=== PATIENT | male | born 1985 | race African-American/Black ===

== ENCOUNTER 2016-12-10 11:51 | Inpatient (IN) | payer OTHER ==
[2016-12-10 13:34] VITALS: BMI 21.1
--- NOTE | 2016-12-10 16:52 | HP ---
CIWA Score - CIWA Score Nausea/Vomitin (DIARRHEA) Muscle Tremors: 3 Anxiety: 4-Mod. Anxious/Guarded Agitation: 3 Paroxysmal Sweats: 1-Minimal Palms Moist Orientation: 0-Oriented Tacttile Disturbances: 0-None Auditory Disturbances: 0-None Visual Disturbances: 0-None Headache: 0-None Present CIWA-Ar Total Score: 16 Admission ROS BHS - HPI Chief Complaint: DETOX TX FOR ALCOHOL DEPENDENCE. PT STATES "I NEED HELP TO STOP DRINKING". Allergies/Adverse Reactions: Allergies Allergy/AdvReac Type Severity Reaction Status Date / Time No Known Allergies Allergy Verified 12/10/16 16:05 History of Present Illness: 31 Y/O AA/MALE WITH A HX OF ALCOHOL,CRACK AND CRYSTAL METHAMPHETAMINE SEEKING DETOX TX . STATES ABOUT ONE YEAR SOBRIETY SINCE LAST DETOX HERE IN 2014. Exam Limitations: No Limitations - Ebola screening Have you traveled outside of the country in the last 21 days: No Have you had contact with anyone from an Ebola affected area: No Have you been sick,other than usual withdrawal symptoms: No Do you have a fever: No - Review of Systems Constitutional: Night Sweats, Changes in sleep, Unintentional Wgt. Loss EENT: reports: No Symptoms Reported Respiratory: reports: Shortness of Breath (HX ASTHMA), Wheezing Cardiac: reports: Lightheadedness GI: reports: Diarrhea, Nausea, Poor Fluid Intake, Vomiting : reports: Frequency Musculoskeletal: reports: Joint Pain, Muscle Pain Integumentary: reports: No Symptoms Reported Neuro: reports: Headache, Unsteady Gait, Dizziness Endocrine: reports: No Symptoms Reported Hematology: reports: No Symptoms Reported Psychiatric: reports: Orientated x3, Anxious, Depressed Other Systems: Reviewed and Negative Patient History - Patient Medical History Hx Anemia: No Hx Asthma: Yes (Pt is on MDI) Hx Chronic Obstructive Pulmonary Disease (COPD): No Hx Cancer: No Hx Cardiac Disorders: No Hx Congestive Heart Failure: No Hx Hypertension: No Hx Hypercholesterolemia: No Hx Pacemaker: No HX Cerebrovascular Accident: No Hx Seizures: No Hx Dementia: No Hx Diabetes: No Hx Gastrointestinal Disorders: No Hx Liver Disease: No Hx Genitourinary Disorders: No Hx Sexually Transmitted Disorders: No Hx Renal Disease (ESRD): No Hx Thyroid Disease: No Hx Human Immunodeficiency Virus (HIV): Yes (SINCE 2005;ON STRIBILD) Hx Hepatitis C: No Hx Depression: Yes Hx Suicide Attempt: No (HX CUTTING SELF; DENIES CURRENT IDEATIONS.) Hx Bipolar Disorder: No Hx Schizophrenia: No - Patient Surgical History Past Surgical History: Yes Hx Neurologic Surgery: No Hx Cataract Extraction: No Hx Cardiac Surgery: No Hx Lung Surgery: No Hx Breast Surgery: No Hx Breast Biopsy: No Hx Abdominal Surgery: No Hx Appendectomy: No Hx Cholecystectomy: No Hx Genitourinary Surgery: No Hx Orthopedic Surgery: No Other Surgical History: surgery for fx of mandible in 2010 Anesthesia Reaction: No - PPD History Previous Implant?: Yes Documented Results: Negative w/o proof Implanted On Prior [facility] Admission?: No Date: 10/24/14 Results: 0 mm PPD to be Administered?: Yes - Reproductive History Patient is a Female of Child Bearing Age (11 -55 yrs old): No (MALE) - Smoking Cessation Smoking history: Current every day smoker Have you smoked in the past 12 months: Yes Aproximately how many cigarettes per day: 10 Cigars Per Day: 0 Hx Chewing Tobacco Use: No Initiated information on smoking cessation: Yes 'Breaking Loose' booklet given: 12/10/16 - Substance & Tx. History Hx Alcohol Use: Yes (VODKA/BEER) Hx Substance Use: Yes (CRACK/METHAMPHETAMINE) Substance Use Type: Alcohol, Cocaine Hx Substance Use Treatment: Yes ([facility]AB) - Substances Abused Alcohol Route: Oral Frequency: Daily Amount used: 1 AND 1/2 PINTS VODKA Age of first use: 16 Date of Last Use: 12/10/16 Crack Route: Smoking Frequency: 3-6 times per week Amount used: $100 Age of first use: 22 Date of Last Use: 12/08/16 CRYSTAL METH Route: Smoking Frequency: 1-3 times last 30 days Amount used: $60 Age of first use: 25 Date of Last Use: 11/26/16 Family Disease History - Family Disease History Family Disease History: Other: Mother ( DUE TO MVA.) Admission Physical Exam BHS - Vital Signs Vital Signs: Vital Signs - 24 hr 12/10/16 13:32 Temperature 96 F L Pulse Rate 69 Respiratory 20 Rate Blood Pressure 127/80 - Physical General Appearance: Yes: Mild Distress, Thin, Anxious HEENTM: Yes: EOMI, Normocephalic, EMMY, Pharynx Normal Respiratory: Yes: Chest Non-Tender, Lungs Clear, Normal Breath Sounds, No Respiratory Distress Neck: Yes: Supple, Trachea in good position Breast: Yes: Breast Exam Deferred Cardiology: Yes: Regular Rhythm, Regular Rate, S1, S2 Abdominal: Yes: Normal Bowel Sounds, Non Tender, Soft Genitourinary: Yes: Other (N/C) Back: Yes: Within Normal Limits Musculoskeletal: Yes: full range of Motion, Gait Steady Extremities: Yes: Normal Range of Motion, Non-Tender Neurological: Yes: heel scorer II-XII NML intact, Fully Oriented, Alert Integumentary: Yes: Dry, Warm Lymphatic: Yes: Within Normal Limits - Diagnostic (1) Asthma Current Visit: Yes Status: Chronic Qualifiers: Asthma severity: mild intermittent Asthma complication type: uncomplicated Qualified Code(s): J45.20 - Mild intermittent asthma, uncomplicated (2) Human immunodeficiency virus infection Current Visit: Yes Status: Chronic (3) Alcohol dependence with uncomplicated withdrawal Current Visit: Yes Status: Acute Cleared for Admission [facility] - Detox or Rehab [facility] Level of Care: Medically Managed Detox Regimen/Protocol: Librium [facility] Breath Alcohol Content Breath Alcohol Content: 0 Urine Drug Screen - Results Drug Screen Negative: Yes
[2016-12-10] MEDS ORDERED: MAGNESIUM HYDROX 2400MG/30ML ORAL SUSPENSION 30 ML CUP PO PRN (17:06)
[2016-12-10] MEDS ORDERED: IBUPROFEN 400 MG TABLET (FP) PO PRN (17:06)
[2016-12-10] MEDS ORDERED: MAGNESIUM CITRATE 300 ML BOTTLE PO PRN (17:06)
[2016-12-10] MEDS ORDERED: guaiFENesin/D-METHORPHAN HB 10 ML UNIT-DOSE CUPS PO PRN (17:06)
[2016-12-10] MEDS ORDERED: chlordiazePOXIDE HCL 25 MG CAPSULE PO PRN (17:06)
[2016-12-10] MEDS ORDERED: P-EPHED 60MG/TRIPROLIDI 2.5MG TABLET PO PRN (17:06)
[2016-12-10] MEDS ORDERED: NICOTINE POLACRILEX 2 MG GUM BC PRN (17:06)
[2016-12-10] MEDS ORDERED: MAG HYDROX/AL HYDROX/SIMETH 30 ML UNIT-DOSE CUP PO PRN (17:06)
[2016-12-10] MEDS ORDERED: hydrOXYzine PAMOATE 25 MG CAPSULE (FP) PO PRN (17:06)
[2016-12-10] MEDS ORDERED: MENTHOL/PHENOL 1 EACH UD MM PRN (17:06)
[2016-12-10] MEDS ORDERED: ALBUTEROL SO4 6.7 GM HFA INHALER IH PRN (17:12)
[2016-12-10] MEDS ORDERED: chlordiazePOXIDE HCL 25 MG CAPSULE PO ONE (18:45)
[2016-12-10] MEDS: chlordiazePOXIDE HCL 25 MG CAPSULE PO SCH ×2 (19:05→22:22)
[2016-12-10] MEDS: ACETAMINOPHEN 325 MG TABLET (FP) PO PRN (19:07)
[2016-12-10] MEDS: NICOTINE 14 MG/24 HOURS TOPICAL PATCH TD SCH (19:09)
[2016-12-10] MEDS: THIAMINE HCL 100 MG TABLET (FP) PO SCH (22:22)
[2016-12-11] MEDS: chlordiazePOXIDE HCL 25 MG CAPSULE PO SCH ×3 (05:29→17:22)
[2016-12-11] MEDS: ACETAMINOPHEN 325 MG TABLET (FP) PO PRN ×2 (05:31→19:55)
[2016-12-11 09:59] LABS: URINE APPEARANCE CLOUDY; URINE BILIRUBIN NEGATIVE (NEGATIVE); URINE BLOOD NEGATIVE (NEGATIVE); URINE COLOR LTYELLOW; URINE GLUCOSE (UA) NEGATIVE (NEGATIVE); URINE KETONE NEGATIVE (NEGATIVE); URINE LEUK ESTERASE NEGATIVE (NEGATIVE); URINE NITRITE NEGATIVE (NEGATIVE); URINE PROTEIN NEGATIVE (NEGATIVE); URINE UROBILINOGEN NEGATIVE E.U./dl (0.2-1.0)
[2016-12-11 10:00] LABS: MCH 31.5 pg (25.7-33.7); MEAN CELL VOLUME 92.7 fl (80-96); MEAN PLT VOLUME 8.6 fl (7.5-11.1); PLATELET COUNT 259 K/MM3 (134-434); RDW 12.9 % (11.9-15.9); WHITE BLOOD COUNT 2.9 K/mm3 (4.0-10.0)
--- NOTE | 2016-12-11 10:00 | PN ---
S CIWA - CIWA Score Nausea/Vomitin-No Nausea/No Vomiting Muscle Tremors: 3 Anxiety: 5 Agitation: 3 Paroxysmal Sweats: 2 Orientation: 0-Oriented Tacttile Disturbances: 3-Moderate Itch/Numb/Burn Auditory Disturbances: 0-None Visual Disturbances: 0-None Headache: 0-None Present CIWA-Ar Total Score: 16 BHS Progress Note (SOAP) Subjective: ANXIETY,SLIGHT TREMORS, SWEATS. Objective: 12/11/16 10:00 Vital Signs Temperature 98.1 F 12/11/16 09:50 Pulse Rate 83 12/11/16 09:50 Respiratory Rate 18 12/11/16 09:50 Blood Pressure 119/72 12/11/16 09:50 O2 Sat by Pulse Oximetry (%) LABS PENDING Assessment: 12/11/16 10:00 WITHDRAWAL SX Plan: CONTINUE DETOX
[2016-12-11 10:07] LABS: ALBUMIN 3.9 g/dl (3.4-5.0); ANION GAP 9 (8-16); CALCIUM 9.3 mg/dL (8.5-10.1); CO2 32 mmol/L (21-32); GLUCOSE,RANDOM 92 mg/dL (74-106)
[2016-12-11 10:12] LABS: ALK PHOS 102 U/L (45-117); BILIRUBIN,TOTAL 0.3 mg/dL (0.2-1.0); CREATININE 0.8 mg/dL (0.7-1.3); SGOT/AST 28 U/L (15-37); SGPT/ALT 29 U/L (12-78); TOT PROT 8.5 g/dl (6.4-8.2)
[2016-12-11] MEDS: NICOTINE 14 MG/24 HOURS TOPICAL PATCH TD SCH (10:20)
[2016-12-11] MEDS: PRENATAL VITAMINS W/ FOLIC ACID TABLET (FP) PO SCH (10:20)
--- NOTE | 2016-12-11 15:51 | CONSULT ---
[facility] Psychiatric Consult - Data Date of interview: 12/11/16 Admission source: [facility] Identifying data: Readmission to [facility] for this 31 y/o AA male seeking detox treatment,on ,for alcohol,cocaine (crack) and crystal methamphetamine dependence.Patient is single without children,domiciled, unemployed and supported on Public Assistance. Substance Abuse History: - Smoking Cessation. Smoking history: Current every day smoker. Have you smoked in the past 12 months: Yes. Aproximately how many cigarettes per day: 10. Cigars Per Day: 0. Hx Chewing Tobacco Use: No. Initiated information on smoking cessation: Yes. 'Breaking Loose' booklet given : 12/10/16. - Substance & Tx. History. Hx Alcohol Use: Yes (VODKA/BEER). Hx Substance Use: Yes (CRACK/METHAMPHETAMINE). Substance Use Type: Alcohol, Cocaine. Hx Substance Use Treatment: Yes ([facility]-DETOX/REHAB). - Substances Abused. Alcohol. Route: Oral. Frequency: Daily. Amount used: 1 AND 1/2 PINTS VODKA. Age of first use: 16. Date of Last Use: 12/10/16. Crack. Route: Smoking. Frequency: 3-6 times per week. Amount used: $100. Age of first use: 22. Date of Last Use: 12/08/16. CRYSTAL METH. Route: Smoking. Frequency: 1-3 times last 30 days. Amount used: $60. Age of first use: 25. Date of Last Use: 11/26/16. Confirmed by patient. Medical History: HIV infection since 2005 and bronchial asthma. Psychiatric History: Patient denies history of psychiatric hospitalizations or contact with psychiatric OPD care providers.Mr Barrett does admit to a history of suicide attempt via self-mutilation (cutting) in 2011.No prior exposure to psychotropic medications as per self-report.Adequate sleep is reported. Physical/Sexual Abuse/Trauma History: Patient denies. Additional Comment: Drug Screen is negative. Mental Status Exam - Mental Status Exam Alert and Oriented to: Time, Place, Person Cognitive Function: Good Patient Appearance: Unkempt, Disheveled (thin ) Mood: Withdrawn Affect: Mood Congruent, Constricted Patient Behavior: Sedated (light sedation), Fatigued Speech Pattern: Delayed, Slurred Voice Loudness: Normal Thought Process: Goal Oriented Thought Disorder: Not Present Hallucinations: Denies Suicidal Ideation: Denies Homicidal Ideation: Denies Insight/Judgement: Poor Sleep: Well Appetite: Good Muscle strength/Tone: Normal Gait/Station: Normal Psychiatric Findings - Problem List ([place] 1, 2,3) (1) Alcohol dependence with uncomplicated withdrawal Current Visit: Yes Status: Acute (2) Methamphetamine abuse Current Visit: Yes Status: Acute (3) Nicotine dependence Current Visit: Yes Status: Acute (4) Substance induced mood disorder Current Visit: Yes Status: Acute (5) Asthma Current Visit: Yes Status: Chronic Qualifiers: Asthma severity: mild intermittent Asthma complication type: uncomplicated Qualified Code(s): J45.20 - Mild intermittent asthma, uncomplicated (6) Human immunodeficiency virus infection Current Visit: Yes Status: Chronic (7) Weight decreased Current Visit: Yes Status: Chronic - Initial Treatment Plan Initial Treatment Plan: Psychoeducation.Detoxification.Observation.
[2016-12-11] MEDS ORDERED: chlordiazePOXIDE HCL 25 MG CAPSULE PO SCH (17:00)
[2016-12-11] MEDS: LOPERAMIDE HCL 2 MG CAPSULE PO PRN (17:24)
[2016-12-11] MEDS: diphenhydrAMINE HCL 50 MG CAPSULE PO PRN (22:05)
[2016-12-11] MEDS: THIAMINE HCL 100 MG TABLET (FP) PO SCH (22:05)
[2016-12-11] MEDS: chlordiazePOXIDE 5 MG CAPSULE PO SCH (22:05)
--- NOTE | 2016-12-11 23:08 | EKG ---
Test Reason : Blood Pressure : / mmHG Vent. Rate : 082 BPM Atrial Rate : 082 BPM P-R Int : 160 ms QRS Dur : 074 ms QT Int : 360 ms P-R-T Axes : 039 052 031 degrees QTc Int : 420 ms NORMAL SINUS RHYTHM SEPTAL INFARCT , AGE UNDETERMINED ABNORMAL ECG NO PREVIOUS ECGS AVAILABLE Confirmed by TRISTEN NUNEZ MD ([id number]) on 12/11/2016 11:07:51 PM Referred By: José Miguel Monroy Confirmed By:TRISTEN NUNEZ MD
[2016-12-12] MEDS: ACETAMINOPHEN 325 MG TABLET (FP) PO PRN ×3 (05:41→22:03)
[2016-12-12] MEDS: chlordiazePOXIDE 5 MG CAPSULE PO SCH ×2 (05:42→10:08)
[2016-12-12] MEDS: LOPERAMIDE HCL 2 MG CAPSULE PO PRN (05:43)
[2016-12-12] MEDS: PRENATAL VITAMINS W/ FOLIC ACID TABLET (FP) PO SCH (10:08)
[2016-12-12] MEDS: NICOTINE 14 MG/24 HOURS TOPICAL PATCH TD SCH (10:08)
--- NOTE | 2016-12-12 10:25 | PN ---
S CIWA - CIWA Score Nausea/Vomitin-No Nausea/No Vomiting Muscle Tremors: 3 Anxiety: 3 Agitation: 3 Paroxysmal Sweats: 1-Minimal Palms Moist Orientation: 0-Oriented Tacttile Disturbances: 2-Mild Itch/Numbness/Burn Auditory Disturbances: 0-None Visual Disturbances: 0-None Headache: 0-None Present CIWA-Ar Total Score: 12 BHS Progress Note (SOAP) Subjective: SLIGHT ANXIETY,SWEATS,DIARRHEA. Objective: 12/12/16 10:24 Vital Signs Temperature 98.1 F 12/12/16 09:25 Pulse Rate 67 12/12/16 09:25 Respiratory Rate 20 12/12/16 09:25 Blood Pressure 110/77 12/12/16 09:25 O2 Sat by Pulse Oximetry (%) Laboratory Last Values WBC 2.9 K/mm3 (4.0-10.0) L D 12/11/16 06:00 RBC 4.20 M/mm3 (4.00-5.60) 12/11/16 06:00 Hgb 13.2 GM/dL (11.7-16.9) 12/11/16 06:00 Hct 38.9 % (35.4-49) 12/11/16 06:00 MCV 92.7 fl (80-96) 12/11/16 06:00 MCHC 34.0 g/dl (32.0-35.9) 12/11/16 06:00 RDW 12.9 % (11.9-15.9) 12/11/16 06:00 Plt Count 259 K/MM3 (134-434) 12/11/16 06:00 MPV 8.6 fl (7.5-11.1) 12/11/16 06:00 Sodium 141 mmol/L (136-145) 12/11/16 06:00 Potassium 4.0 mmol/L (3.5-5.1) 12/11/16 06:00 Chloride 100 mmol/L (98-107) 12/11/16 06:00 Carbon Dioxide 32 mmol/L (21-32) 12/11/16 06:00 Anion Gap 9 (8-16) 12/11/16 06:00 BUN 6 mg/dL (7-18) L D 12/11/16 06:00 Creatinine 0.8 mg/dL (0.7-1.3) 12/11/16 06:00 Creat Clearance w eGFR > 60 (>60) 12/11/16 06:00 Random Glucose 92 mg/dL (74-106) 12/11/16 06:00 Calcium 9.3 mg/dL (8.5-10.1) 12/11/16 06:00 Total Bilirubin 0.3 mg/dL (0.2-1.0) D 12/11/16 06:00 AST 28 U/L (15-37) D 12/11/16 06:00 ALT 29 U/L (12-78) D 12/11/16 06:00 Alkaline Phosphatase 102 U/L (45-117) 12/11/16 06:00 Total Protein 8.5 g/dl (6.4-8.2) H 12/11/16 06:00 Albumin 3.9 g/dl (3.4-5.0) D 12/11/16 06:00 Urine Color Ltyellow 12/11/16 07:00 Urine Appearance Cloudy 12/11/16 07:00 Urine pH 7.0 (5.0-8.0) 12/11/16 07:00 Ur Specific [place] 1.014 (1.001-1.035) 12/11/16 07:00 Urine Protein Negative (NEGATIVE) 12/11/16 07:00 Urine Glucose (UA) Negative (NEGATIVE) 12/11/16 07:00 Urine Ketones Negative (NEGATIVE) 12/11/16 07:00 Urine Blood Negative (NEGATIVE) 12/11/16 07:00 Urine Nitrite Negative (NEGATIVE) 12/11/16 07:00 Urine Bilirubin Negative (NEGATIVE) 12/11/16 07:00 Urine Urobilinogen Negative E.U./dl (0.2-1.0) 12/11/16 07:00 Ur Leukocyte Esterase Negative (NEGATIVE) 12/11/16 07:00 RPR Titer Nonreactive (NONREACTIVE) 12/11/16 06:00 Assessment: 12/12/16 10:24 WITHDRAWAL SX Plan: CONTINUE DETOX
[2016-12-12] MEDS: chlordiazePOXIDE HCL 10 MG CAPSULE PO SCH ×2 (16:43→22:03)
[2016-12-12] MEDS ORDERED: chlordiazePOXIDE 5 MG CAPSULE PO SCH (17:00)
[2016-12-12] MEDS: THIAMINE HCL 100 MG TABLET (FP) PO SCH (22:02)
[2016-12-12] MEDS: diphenhydrAMINE HCL 50 MG CAPSULE PO PRN (22:03)
[2016-12-13] MEDS: chlordiazePOXIDE HCL 10 MG CAPSULE PO SCH ×2 (05:47→10:11)
[2016-12-13] MEDS: ACETAMINOPHEN 325 MG TABLET (FP) PO PRN (05:48)
[2016-12-13 06:25] VITALS: BP 121/81; PULSE 96; TEMP 95.1
--- NOTE | 2016-12-13 09:18 | PN ---
S Progress Note (SOAP) Subjective: DETOX COMPLETED. ALERT O X 3. NAD. PT WILL F/U WITH HIS CARE AT [facility]. Objective: 12/13/16 09:17 Vital Signs Temperature 95.1 F L 12/13/16 06:25 Pulse Rate 96 H 12/13/16 06:25 Respiratory Rate 18 12/13/16 06:25 Blood Pressure 121/81 12/13/16 06:25 O2 Sat by Pulse Oximetry (%) Assessment: 12/13/16 09:17 MEDICALLY STABLE Plan: D/C PT TODAY
--- NOTE | 2016-12-13 09:19 | DS ---
[facility] Detox Discharge Summary Admission Date: 12/10/16 Discharge Date: 12/13/16 - History Present History: Alcohol Dependence Pertinent Past History: HIV+ ASTHMA - Physical Exam Results Vital Signs: Vital Signs Temperature 95.1 F L 12/13/16 06:25 Pulse Rate 96 H 12/13/16 06:25 Respiratory Rate 18 12/13/16 06:25 Blood Pressure 121/81 12/13/16 06:25 O2 Sat by Pulse Oximetry (%) - Treatment Hospital Course: Detox Protocol Followed, Detoxed Safely, Responded well, Discharged Condition Good - Medication Discharge Medications: Ambulatory Orders Albuterol Sulfate Inhaler - [Ventolin HFA Inhaler -] 2 inh IH Q4H PRN #1 canister 10/26/14 Elviteg/Arcelia/Emtric/Tenofo Dis [Stribild Tablet] 1 each PO DAILY 12/10/16 - Diagnosis (1) Asthma Current Visit: Yes Status: Chronic Qualifiers: Asthma severity: mild intermittent Asthma complication type: uncomplicated Qualified Code(s): J45.20 - Mild intermittent asthma, uncomplicated (2) Human immunodeficiency virus infection Current Visit: Yes Status: Chronic (3) Alcohol dependence with uncomplicated withdrawal Current Visit: Yes Status: Acute (4) Nicotine dependence Current Visit: Yes Status: Acute Qualifiers: Nicotine product type: cigarettes Substance use status: in withdrawal Qualified Code(s): F17.213 - Nicotine dependence, cigarettes, with withdrawal (5) Weight decreased Current Visit: Yes Status: Chronic (6) Substance induced mood disorder Current Visit: Yes Status: Acute (7) Methamphetamine abuse Current Visit: Yes Status: Suspected - AMA Did Patient Leave Against Medical Advice: No
[2016-12-13] MEDS: NICOTINE 14 MG/24 HOURS TOPICAL PATCH TD SCH (10:11)
[2016-12-13] MEDS: PRENATAL VITAMINS W/ FOLIC ACID TABLET (FP) PO SCH (10:12)
[2016-12-13] MEDS ORDERED: chlordiazePOXIDE HCL 10 MG CAPSULE PO SCH (17:00)
== END 2016-12-13 09:15 | disposition home or self-care (01) | DRG 775 ==
LOC: YASAS 11:51 → Y3N 18:12
PROVIDERS: ADMIT Internal Medicine; ATTEND Internal Medicine
PROC: HZ2ZZZZ Detoxification Services for Substance Abuse Treatment (ICD-10-PCS; principal; 2016-12-10)
DX: F10.230 Alcohol dependence with withdrawal, uncomplicated (principal); F15.10 Other stimulant abuse, uncomplicated; F17.213 Nicotine dependence, cigarettes, with withdrawal; F19.24 Other psychoactive substance dependence with psychoactive substance-induced mood disorder; J45.20 Mild intermittent asthma, uncomplicated; Z21 Asymptomatic human immunodeficiency virus [HIV] infection status; Z87.898 Personal history of other specified conditions; Z91.5 Personal history of self-harm; Z59.0 Homelessness
CPT/HCPCS: 36415; 80053; 81003; 85027; 86593; 93005; 93010

== ENCOUNTER 2017-06-07 11:38 | Inpatient (IN) | payer OTHER ==
[2017-06-07 15:33] VITALS: BMI 22.8
--- NOTE | 2017-06-07 17:15 | HP ---
CIWA Score - CIWA Score Nausea/Vomitin Muscle Tremors: 3 Anxiety: 4-Mod. Anxious/Guarded Agitation: 3 Paroxysmal Sweats: 1-Minimal Palms Moist Orientation: 1-Uncertain about Date Tacttile Disturbances: 0-None Auditory Disturbances: 0-None Visual Disturbances: 0-None Headache: 1-Very Mild CIWA-Ar Total Score: 15 Admission ROS BHS - HPI Chief Complaint: withdrawal sx Allergies/Adverse Reactions: Allergies Allergy/AdvReac Type Severity Reaction Status Date / Time No Known Allergies Allergy Verified 06/07/17 16:39 History of Present Illness: 32 years old male with long history of alcohol nicotine dependence has asthma gerd, weight loss and depression is admitted to detox Exam Limitations: No Limitations - Ebola screening Have you traveled outside of the country in the last 21 days: No Have you had contact with anyone from an Ebola affected area: No Have you been sick,other than usual withdrawal symptoms: No Do you have a fever: No - Review of Systems Constitutional: Loss of Appetite, Changes in sleep, Unintentional Wgt. Loss EENT: reports: Dental Problems (left upper tooth ache x "weeks" treated with tylenal or motrin at home with good effect) Respiratory: reports: No Symptoms reported Cardiac: reports: No Symptoms Reported GI: reports: Nausea, Poor Appetite, Poor Fluid Intake, Vomiting, Indigestion, Abdominal cramping : reports: No Symptoms Reported Musculoskeletal: reports: Muscle Pain (mild right lower abdomen pain x "days" no treatment.) Integumentary: reports: No Symptoms Reported Neuro: reports: No Symptoms reported Endocrine: reports: No Symptoms Reported Hematology: reports: No Symptoms Reported Psychiatric: reports: Judgement Intact, Depressed Other Systems: Reviewed and Negative Patient History - Patient Medical History Hx Anemia: No Hx Asthma: Yes (Pt is on MDI) Hx Chronic Obstructive Pulmonary Disease (COPD): No Hx Cancer: No Hx Cardiac Disorders: No Hx Congestive Heart Failure: No Hx Hypertension: No Hx Hypercholesterolemia: No Hx Pacemaker: No HX Cerebrovascular Accident: No Hx Seizures: No Hx Dementia: No Hx Diabetes: No Hx Gastrointestinal Disorders: No Hx Liver Disease: No Hx Genitourinary Disorders: No Hx Sexually Transmitted Disorders: No Hx Renal Disease (ESRD): No Hx Thyroid Disease: No Hx Human Immunodeficiency Virus (HIV): Yes (SINCE 2005;ON STRIBILD) Hx Hepatitis C: No Hx Depression: Yes Hx Suicide Attempt: Yes (HX CUTTING SELF; DENIES CURRENT IDEATIONS.) Hx Bipolar Disorder: No Hx Schizophrenia: No - Patient Surgical History Past Surgical History: Yes Hx Neurologic Surgery: No Hx Cataract Extraction: No Hx Cardiac Surgery: No Hx Lung Surgery: No Hx Breast Surgery: No Hx Breast Biopsy: No Hx Abdominal Surgery: No Hx Appendectomy: No Hx Cholecystectomy: No Hx Genitourinary Surgery: No Hx Orthopedic Surgery: No Other Surgical History: surgery for fx of mandible in 2010 Anesthesia Reaction: No - PPD History Previous Implant?: Yes Documented Results: Negative w/proof Implanted On Prior [facility] Admission?: Yes Date: 12/12/16 Results: 0 mm PPD to be Administered?: No - Smoking Cessation Smoking history: Current every day smoker Have you smoked in the past 12 months: Yes Aproximately how many cigarettes per day: 10 Cigars Per Day: 0 Hx Chewing Tobacco Use: No Initiated information on smoking cessation: Yes 'Breaking Loose' booklet given: 06/07/17 - Substance & Tx. History Hx Alcohol Use: Yes Hx Substance Use: Yes Substance Use Type: Alcohol, Cocaine Hx Substance Use Treatment: Yes (12/2016) - Substances Abused Alcohol Route: Oral Frequency: Daily Amount used: LIQUOR- 2 PINTS, Age of first use: 15 Date of Last Use: 06/05/17 Family Disease History - Family Disease History Family Disease History: Other: Mother ( DUE TO MVA.) Admission Physical Exam BHS - Vital Signs Vital Signs: Vital Signs - 24 hr 06/07/17 15:32 Temperature 96.8 F L Pulse Rate 75 Respiratory 18 Rate Blood Pressure 115/81 - Physical General Appearance: Yes: Appropriately Dressed, Mild Distress, Thin, Tremorous, Irritable, Sweating, Anxious HEENTM: Yes: Hearing grossly Normal, Normal ENT Inspection, Normocephalic, Normal Voice Respiratory: Yes: Chest Non-Tender, Lungs Clear, Normal Breath Sounds, No Respiratory Distress, No Accessory Muscle Use Neck: Yes: Supple, Trachea in good position Breast: Yes: Breasts Symetrical Cardiology: Yes: Regular Rhythm, Regular Rate, S1, S2 Abdominal: Yes: Non Tender, Soft Genitourinary: Yes: Within Normal Limits Back: Yes: Normal Inspection Musculoskeletal: Yes: full range of Motion, Gait Steady Extremities: Yes: Normal Inspection, Normal Range of Motion, Non-Tender, Tremors Neurological: Yes: Alert, Motor Strength 5/5, Normal Response, Depressed Affect Integumentary: Yes: Warm Lymphatic: Yes: Within Normal Limits - Diagnostic (1) Alcohol dependence with uncomplicated withdrawal Current Visit: Yes Status: Acute (2) Depression Current Visit: Yes Status: Suspected Qualifiers: Depression Type: dysthymia Qualified Code(s): F34.1 - Dysthymic disorder; F34.1 - Dysthymic disorder; F34.1 - Dysthymic disorder (3) Nicotine dependence Current Visit: Yes Status: Acute Qualifiers: Nicotine product type: cigarettes Substance use status: in withdrawal Qualified Code(s): F17.213 - Nicotine dependence, cigarettes, with withdrawal; F17.213 - Nicotine dependence, cigarettes, with withdrawal (4) Asthma Current Visit: Yes Status: Chronic Qualifiers: Asthma severity: mild Asthma complication type: uncomplicated Qualified Code(s): - (5) Weight decreased Current Visit: Yes Status: Acute Cleared for Admission [facility] - Detox or Rehab [facility] Level of Care: Medically Managed Detox Regimen/Protocol: Librium [facility] Breath Alcohol Content Breath Alcohol Content: 0 Urine Drug Screen - Results Drug Screen Negative: No Urine Drug Screen Results: AMP-Amphetamines, MET-Methamphetamine
[2017-06-07] MEDS ORDERED: LOPERAMIDE HCL 2 MG CAPSULE PO PRN (17:23)
[2017-06-07] MEDS ORDERED: guaiFENesin/D-METHORPHAN HB 10 ML UNIT-DOSE CUPS PO PRN (17:23)
[2017-06-07] MEDS ORDERED: MAGNESIUM HYDROX 2400MG/30ML ORAL SUSPENSION 30 ML CUP PO PRN (17:23)
[2017-06-07] MEDS ORDERED: MENTHOL/PHENOL 1 EACH UD MM PRN (17:23)
[2017-06-07] MEDS ORDERED: NICOTINE POLACRILEX 2 MG GUM BC PRN (17:23)
[2017-06-07] MEDS ORDERED: MAG HYDROX/AL HYDROX/SIMETH 30 ML UNIT-DOSE CUP PO PRN (17:23)
[2017-06-07] MEDS ORDERED: P-EPHED 60MG/TRIPROLIDI 2.5MG TABLET PO PRN (17:23)
[2017-06-07] MEDS ORDERED: chlordiazePOXIDE HCL 25 MG CAPSULE PO PRN (17:23)
[2017-06-07] MEDS ORDERED: MAGNESIUM CITRATE 300 ML BOTTLE PO PRN (17:23)
[2017-06-07] MEDS ORDERED: ALBUTEROL SO4 18 GM HFA INHALER IH PRN (17:25)
[2017-06-07] MEDS ORDERED: ONDANSETRON *ODT* 4 MG TABLET SL PRN (17:26)
[2017-06-07] MEDS: DOXYCYCLINE HYCLATE 100 MG TABLET PO SCH (18:44)
[2017-06-07] MEDS: ACETAMINOPHEN 325 MG TABLET (FP) PO PRN (18:45)
[2017-06-07 21:07] LABS: URINE APPEARANCE CLEAR; URINE BILIRUBIN NEGATIVE (NEGATIVE); URINE BLOOD 1+ (NEGATIVE); URINE COLOR LTYELLOW; URINE GLUCOSE (UA) NEGATIVE (NEGATIVE); URINE KETONE NEGATIVE (NEGATIVE); URINE NITRITE NEGATIVE (NEGATIVE); URINE PROTEIN NEGATIVE (NEGATIVE); URINE UROBILINOGEN NEGATIVE mg/dL (0.2-1.0)
[2017-06-07 21:21] LABS: URINE MUCUS RARE; URINE WBC 1 /hpf (3-5)
[2017-06-07] MEDS: RANITIDINE HCL 150 MG TABLET (FP) PO SCH (22:14)
[2017-06-07] MEDS: diphenhydrAMINE HCL 50 MG CAPSULE PO PRN (22:14)
[2017-06-07] MEDS: chlordiazePOXIDE HCL 25 MG CAPSULE PO SCH (22:14)
[2017-06-07] MEDS: THIAMINE HCL 100 MG TABLET (FP) PO SCH (22:14)
[2017-06-07 22:56] LABS: URINE LEUK ESTERASE Negative (NEGATIVE)
[2017-06-08] MEDS: chlordiazePOXIDE HCL 25 MG CAPSULE PO SCH ×4 (05:36→22:17)
[2017-06-08] MEDS: ACETAMINOPHEN 325 MG TABLET (FP) PO PRN ×3 (05:38→20:00)
[2017-06-08] MEDS: RANITIDINE HCL 150 MG TABLET (FP) PO SCH ×2 (10:19→22:17)
[2017-06-08] MEDS: NICOTINE 14 MG/24 HOURS TOPICAL PATCH TD SCH (10:19)
[2017-06-08] MEDS: PRENATAL VITAMINS W/ FOLIC ACID TABLET (FP) PO SCH (10:19)
[2017-06-08] MEDS: DOXYCYCLINE HYCLATE 100 MG TABLET PO SCH ×2 (10:19→17:18)
[2017-06-08 11:20] LABS: MCH 30.9 pg (25.7-33.7); MCHC 35.5 g/dl (32.0-35.9); MEAN CELL VOLUME 87.2 fl (80-96); MEAN PLT VOLUME 8.5 fl (7.5-11.1); PLATELET COUNT 273 K/MM3 (134-434); RDW 13.8 % (11.9-15.9); WHITE BLOOD COUNT 3.6 K/mm3 (4.0-10.0)
--- NOTE | 2017-06-08 11:25 | CONSULT ---
[facility] Psychiatric Consult - Data Date of interview: 06/08/17 Admission source: [facility] Identifying data: Another admission to [facility] for this 32 y/o AA male seeking detox treatment,on ,for alcohol,cocaine (crack) and methamphetamine dependence.Patient is single without children,domiciled, unemployed and supported on Public Assistance. Substance Abuse History: Discussed with patient in this session.Mr Barrett confirmed abuse of crack/cocaine,alcohol and crystal methamphetamine. Smoking history: Current every day smoker. Have you smoked in the past 12 months: Yes. Aproximately how many cigarettes per day: 10. Cigars Per Day: 0. Hx Chewing Tobacco Use: No. Initiated information on smoking cessation: Yes. 'Breaking Loose' booklet given: 06/07/17. - Substance & Tx. History. Hx Alcohol Use: Yes. Hx Substance Use: Yes. Substance Use Type: Alcohol, Cocaine. Hx Substance Use Treatment: Yes (12/2016). - Substances Abused. Alcohol. Route : Oral. Frequency: Daily. Amount used: LIQUOR- 2 PINTS,. Age of first use: 15. Date of Last Use: 06/05/17 Medical History: History of GERD,HIV infection (on ART medications) since 2005, past surgery for fracture of mandible and bronchial asthma. Psychiatric History: No reported history of psychiatric hospitalizations.Patient denies history of psychiatric OPD care.Mr Hermosillo is a distant,evasive and irritable historian.Taken from previous records : history of suicide attempt via self-mutilation (cutting) in 2011.No prior exposure to psychotropic medications. Physical/Sexual Abuse/Trauma History: Patient denies history of abuse. Additional Comment: Urine Drug Screen Results: AMP-Amphetamines, MET- Methamphetamine.Noted. Mental Status Exam - Mental Status Exam Alert and Oriented to: Time, Place, Person Cognitive Function: Grossly Intact Patient Appearance: Disheveled (thin habitus) Mood: Hostile, Withdrawn, Irritable Affect: Mood Congruent Patient Behavior: Fatigued, Uncooperative, Guarded Speech Pattern: Clear (non spontaneous but coherent) Voice Loudness: Normal Thought Process: Goal Oriented Thought Disorder: Not Present Hallucinations: Denies Suicidal Ideation: Denies Homicidal Ideation: Denies Insight/Judgement: Poor Sleep: Well Appetite: Good Muscle strength/Tone: Normal Gait/Station: Normal Psychiatric Findings - Problem List ([place] 1, 2,3) (1) Alcohol dependence with uncomplicated withdrawal Current Visit: Yes Status: Acute (2) Nicotine dependence Current Visit: Yes Status: Acute Qualifiers: Nicotine product type: cigarettes Substance use status: in withdrawal Qualified Code(s): F17.213 - Nicotine dependence, cigarettes, with withdrawal; F17.213 - Nicotine dependence, cigarettes, with withdrawal (3) Methamphetamine dependence Current Visit: Yes Status: Acute (4) Substance induced mood disorder Current Visit: No Status: Acute (5) Asthma Current Visit: Yes Status: Chronic Qualifiers: Asthma severity: mild Asthma complication type: uncomplicated (6) Human immunodeficiency virus infection Current Visit: Yes Status: Chronic (7) Weight decreased Current Visit: Yes Status: Chronic - Initial Treatment Plan Initial Treatment Plan: Psychoeducation.Detoxification.Observation.
[2017-06-08 11:27] LABS: ALBUMIN 2.6 g/dl (3.4-5.0); ALK PHOS 99 U/L (45-117); ANION GAP 6 (8-16); BILIRUBIN,TOTAL 0.5 mg/dL (0.2-1.0); CALCIUM 7.9 mg/dL (8.5-10.1); CO2 30 mmol/L (21-32); CREATININE 0.7 mg/dL (0.7-1.3); GLUCOSE,RANDOM 89 mg/dL (74-106); SGOT/AST 19 U/L (15-37); SGPT/ALT 17 U/L (12-78); TOT PROT 6.6 g/dl (6.4-8.2)
--- NOTE | 2017-06-08 16:47 | PN ---
[facility] CIWA - CIWA Score Nausea/Vomitin-No Nausea/No Vomiting Muscle Tremors: 3 Anxiety: 4-Mod. Anxious/Guarded Agitation: 2 Paroxysmal Sweats: 2 Orientation: 0-Oriented Tacttile Disturbances: 2-Mild Itch/Numbness/Burn Auditory Disturbances: 2-Mild Harshness/Frighten Visual Disturbances: 1-Very Mild Sensitivity Headache: 0-None Present CIWA-Ar Total Score: 16 [facility] Progress Note (SOAP) Subjective: Fatigue, Anxious, Diarrhea, Chills. Objective: PT. A & O X 3. NO ACUTE DISTRESS. 06/08/17 16:43 Vital Signs Temperature 97.2 F L 06/08/17 14:31 Pulse Rate 121 H 06/08/17 14:31 Respiratory Rate 18 06/08/17 14:31 Blood Pressure 101/62 06/08/17 14:31 O2 Sat by Pulse Oximetry (%) Laboratory Tests 06/07/17 06/08/17 06/08/17 20:00 07:50 07:50 WBC 3.6 L RBC 4.26 Hgb 13.2 Hct 37.2 MCV 87.2 MCH 30.9 MCHC 35.5 RDW 13.8 Plt Count 273 MPV 8.5 Sodium 139 Potassium 3.4 L Chloride 103 Carbon Dioxide 30 Anion Gap 6 L BUN 8 D Creatinine 0.7 Creat Clearance w eGFR > 60 Random Glucose 89 Calcium 7.9 L Total Bilirubin 0.5 D AST 19 D ALT 17 D Alkaline Phosphatase 99 Total Protein 6.6 D Albumin 2.6 L D Urine Color Ltyellow Urine Appearance Clear Urine pH 7.0 Ur Specific [place] 1.020 Urine Protein Negative Urine Glucose (UA) Negative Urine Ketones Negative Urine Blood 1+ H Urine Nitrite Negative Urine Bilirubin Negative Urine Urobilinogen Negative Ur Leukocyte Esterase Negative Urine RBC None Urine WBC 1 Urine Mucus Rare RPR Titer 06/08/17 07:50 WBC RBC Hgb Hct MCV MCH MCHC RDW Plt Count MPV Sodium Potassium Chloride Carbon Dioxide Anion Gap BUN Creatinine Creat Clearance w eGFR Random Glucose Calcium Total Bilirubin AST ALT Alkaline Phosphatase Total Protein Albumin Urine Color Urine Appearance Urine pH Ur Specific [place] Urine Protein Urine Glucose (UA) Urine Ketones Urine Blood Urine Nitrite Urine Bilirubin Urine Urobilinogen Ur Leukocyte Esterase Urine RBC Urine WBC Urine Mucus RPR Titer Nonreactive LABS NOTED. 06/08/17 16:46 Assessment: 06/08/17 16:43 WITHDRAWAL SYMPTOMS. HYPOKALEMIA. LEUKOPENIA. Plan: CONTINUE DETOX. K-DUR PO BID. INCREASE DAILY PO FLUID INTAKE.
[2017-06-08] MEDS: POTASSIUM CHLORIDE TABS 20 MEQ TABLET.ER (FP) PO SCH (17:18)
[2017-06-08] MEDS: THIAMINE HCL 100 MG TABLET (FP) PO SCH (22:17)
[2017-06-08] MEDS: diphenhydrAMINE HCL 50 MG CAPSULE PO PRN (22:18)
[2017-06-09] MEDS: ACETAMINOPHEN 325 MG TABLET (FP) PO PRN ×2 (06:26→10:13)
[2017-06-09] MEDS: chlordiazePOXIDE HCL 25 MG CAPSULE PO SCH ×3 (06:26→17:15)
--- NOTE | 2017-06-09 09:12 | EKG ---
Test Reason : Blood Pressure : / mmHG Vent. Rate : 069 BPM Atrial Rate : 069 BPM P-R Int : 164 ms QRS Dur : 080 ms QT Int : 344 ms P-R-T Axes : 039 052 043 degrees QTc Int : 368 ms NORMAL SINUS RHYTHM NORMAL ECG WHEN COMPARED WITH ECG OF 10-DEC-2016 18:10, QT HAS SHORTENED Confirmed by NOA DAVALOS MD ([id number]) on 06/09/2017 9:12:26 AM Referred By: Confirmed By:NOA DAVALOS MD
[2017-06-09] MEDS: RANITIDINE HCL 150 MG TABLET (FP) PO SCH ×2 (10:12→22:08)
[2017-06-09] MEDS: PRENATAL VITAMINS W/ FOLIC ACID TABLET (FP) PO SCH (10:12)
[2017-06-09] MEDS: POTASSIUM CHLORIDE TABS 20 MEQ TABLET.ER (FP) PO SCH ×2 (10:12→17:16)
[2017-06-09] MEDS: NICOTINE 14 MG/24 HOURS TOPICAL PATCH TD SCH (10:12)
[2017-06-09] MEDS: DOXYCYCLINE HYCLATE 100 MG TABLET PO SCH ×2 (10:12→17:15)
--- NOTE | 2017-06-09 16:27 | PN ---
[facility] CIWA - CIWA Score Nausea/Vomitin Muscle Tremors: 4-Moderate,w/Arms Extend Anxiety: 2 Agitation: 2 Paroxysmal Sweats: 3 Orientation: 0-Oriented Tacttile Disturbances: 1-Very Mild Itch/Numbness Auditory Disturbances: 0-None Visual Disturbances: 0-None Headache: 3-Moderate CIWA-Ar Total Score: 18 S Progress Note (SOAP) Subjective: Nausea, chills, sweating, headache, stomach ache; c/o toothache as per nurse Objective: 06/09/17 16:27 Last Vital Signs Temp Pulse Resp BP Pulse Ox 98.3 F 112 H 20 105/73 06/09/17 12:55 06/09/17 12:55 06/09/17 12:55 06/09/17 12:55 Tachycardic at 112 bpm Laboratory Tests 06/07/17 06/08/17 06/08/17 20:00 07:50 07:50 WBC 3.6 L RBC 4.26 Hgb 13.2 Hct 37.2 MCV 87.2 MCH 30.9 MCHC 35.5 RDW 13.8 Plt Count 273 MPV 8.5 Sodium 139 Potassium 3.4 L Chloride 103 Carbon Dioxide 30 Anion Gap 6 L BUN 8 D Creatinine 0.7 Creat Clearance w eGFR > 60 Random Glucose 89 Calcium 7.9 L Total Bilirubin 0.5 D AST 19 D ALT 17 D Alkaline Phosphatase 99 Total Protein 6.6 D Albumin 2.6 L D Urine Color Ltyellow Urine Appearance Clear Urine pH 7.0 Ur Specific [place] 1.020 Urine Protein Negative Urine Glucose (UA) Negative Urine Ketones Negative Urine Blood 1+ H Urine Nitrite Negative Urine Bilirubin Negative Urine Urobilinogen Negative Ur Leukocyte Esterase Negative Urine RBC None Urine WBC 1 Urine Mucus Rare RPR Titer 06/08/17 07:50 WBC RBC Hgb Hct MCV MCH MCHC RDW Plt Count MPV Sodium Potassium Chloride Carbon Dioxide Anion Gap BUN Creatinine Creat Clearance w eGFR Random Glucose Calcium Total Bilirubin AST ALT Alkaline Phosphatase Total Protein Albumin Urine Color Urine Appearance Urine pH Ur Specific [place] Urine Protein Urine Glucose (UA) Urine Ketones Urine Blood Urine Nitrite Urine Bilirubin Urine Urobilinogen Ur Leukocyte Esterase Urine RBC Urine WBC Urine Mucus RPR Titer Nonreactive Labs noted: K 3.4, UA 1+ blood Assessment: 06/09/17 16:28 Withdrawal symptoms Noted with tachycardia, hypokalemia and microscopic hematuria Plan: Continue detox Tachycardia most likely secondary to withdrawal: continue protocol, encourage to drink more water Hypokalemia: continue PO potassium supplement Microscopic hematuria: encouraged to drink lots of water, repeat UA Toothache: peridex 15ml bid, patient also on antibiotic (doxycycline)
[2017-06-09] MEDS: CHLORHEXIDINE GLUCONATE 0.12% 15ML CUP MM SCH (20:06)
[2017-06-09] MEDS: THIAMINE HCL 100 MG TABLET (FP) PO SCH (22:07)
[2017-06-09] MEDS: diphenhydrAMINE HCL 50 MG CAPSULE PO PRN (22:07)
[2017-06-09] MEDS: chlordiazePOXIDE 5 MG CAPSULE PO SCH (22:08)
[2017-06-10] MEDS: chlordiazePOXIDE 5 MG CAPSULE PO SCH ×3 (05:25→17:43)
[2017-06-10] MEDS: ACETAMINOPHEN 325 MG TABLET (FP) PO PRN ×2 (05:25→21:28)
[2017-06-10] MEDS: NICOTINE 14 MG/24 HOURS TOPICAL PATCH TD SCH (10:15)
[2017-06-10] MEDS: PRENATAL VITAMINS W/ FOLIC ACID TABLET (FP) PO SCH (10:17)
[2017-06-10] MEDS: POTASSIUM CHLORIDE TABS 20 MEQ TABLET.ER (FP) PO SCH ×2 (10:17→17:44)
[2017-06-10] MEDS: RANITIDINE HCL 150 MG TABLET (FP) PO SCH ×2 (10:17→22:27)
[2017-06-10] MEDS: DOXYCYCLINE HYCLATE 100 MG TABLET PO SCH ×2 (10:17→17:44)
--- NOTE | 2017-06-10 10:21 | PN ---
[facility] Progress Note (SOAP) Subjective: ANXIETY,IRRITABILITY,NAUSEA,FATIGUE. Objective: 06/10/17 10:09 Vital Signs Temperature 97.5 F L 06/10/17 09:29 Pulse Rate 113 H 06/10/17 09:29 Respiratory Rate 18 06/10/17 09:29 Blood Pressure 94/73 06/10/17 09:29 O2 Sat by Pulse Oximetry (%) Laboratory Last Values WBC 3.6 K/mm3 (4.0-10.0) L 06/08/17 07:50 RBC 4.26 M/mm3 (4.00-5.60) 06/08/17 07:50 Hgb 13.2 GM/dL (11.7-16.9) 06/08/17 07:50 Hct 37.2 % (35.4-49) 06/08/17 07:50 MCV 87.2 fl (80-96) 06/08/17 07:50 MCH 30.9 pg (25.7-33.7) 06/08/17 07:50 MCHC 35.5 g/dl (32.0-35.9) 06/08/17 07:50 RDW 13.8 % (11.9-15.9) 06/08/17 07:50 Plt Count 273 K/MM3 (134-434) 06/08/17 07:50 MPV 8.5 fl (7.5-11.1) 06/08/17 07:50 Sodium 139 mmol/L (136-145) 06/08/17 07:50 Potassium 3.4 mmol/L (3.5-5.1) L 06/08/17 07:50 Chloride 103 mmol/L (98-107) 06/08/17 07:50 Carbon Dioxide 30 mmol/L (21-32) 06/08/17 07:50 Anion Gap 6 (8-16) L 06/08/17 07:50 BUN 8 mg/dL (7-18) D 06/08/17 07:50 Creatinine 0.7 mg/dL (0.7-1.3) 06/08/17 07:50 Creat Clearance w eGFR > 60 (>60) 06/08/17 07:50 Random Glucose 89 mg/dL (74-106) 06/08/17 07:50 Calcium 7.9 mg/dL (8.5-10.1) L 06/08/17 07:50 Total Bilirubin 0.5 mg/dL (0.2-1.0) D 06/08/17 07:50 AST 19 U/L (15-37) D 06/08/17 07:50 ALT 17 U/L (12-78) D 06/08/17 07:50 Alkaline Phosphatase 99 U/L (45-117) 06/08/17 07:50 Total Protein 6.6 g/dl (6.4-8.2) D 06/08/17 07:50 Albumin 2.6 g/dl (3.4-5.0) L D 06/08/17 07:50 Urine Color Ltyellow 06/07/17 20:00 Urine Appearance Clear 06/07/17 20:00 Urine pH 7.0 (5.0-8.0) 06/07/17 20:00 Ur Specific [place] 1.020 (1.005-1.025) 06/07/17 20:00 Urine Protein Negative (NEGATIVE) 06/07/17 20:00 Urine Glucose (UA) Negative (NEGATIVE) 06/07/17 20:00 Urine Ketones Negative (NEGATIVE) 06/07/17 20:00 Urine Blood 1+ (NEGATIVE) H 06/07/17 20:00 Urine Nitrite Negative (NEGATIVE) 06/07/17 20:00 Urine Bilirubin Negative (NEGATIVE) 06/07/17 20:00 Urine Urobilinogen Negative mg/dL (0.2-1.0) 06/07/17 20:00 Ur Leukocyte Esterase Negative (NEGATIVE) 06/07/17 20:00 Urine RBC None /hpf (0-3) 06/07/17 20:00 Urine WBC 1 /hpf (3-5) 06/07/17 20:00 Urine Mucus Rare 06/07/17 20:00 RPR Titer Nonreactive (NONREACTIVE) 06/08/17 07:50 Assessment: 06/10/17 10:09 WITHDRAWAL SX Plan: CONTINUE DETOX
[2017-06-10] MEDS: CHLORHEXIDINE GLUCONATE 0.12% 15ML CUP MM SCH ×2 (13:51→22:27)
[2017-06-10 15:48] LABS: URINE APPEARANCE SLCLOUDY; URINE BILIRUBIN NEGATIVE (NEGATIVE); URINE BLOOD NEGATIVE (NEGATIVE); URINE COLOR LTYELLOW; URINE GLUCOSE (UA) NEGATIVE (NEGATIVE); URINE KETONE NEGATIVE (NEGATIVE); URINE NITRITE NEGATIVE (NEGATIVE); URINE PROTEIN NEGATIVE (NEGATIVE); URINE UROBILINOGEN NEGATIVE mg/dL (0.2-1.0)
[2017-06-10 19:28] LABS: URINE LEUK ESTERASE Negative (NEGATIVE)
[2017-06-10] MEDS: chlordiazePOXIDE HCL 10 MG CAPSULE PO SCH (22:27)
[2017-06-10] MEDS: diphenhydrAMINE HCL 50 MG CAPSULE PO PRN (22:27)
[2017-06-10] MEDS: THIAMINE HCL 100 MG TABLET (FP) PO SCH (22:27)
[2017-06-11] MEDS: chlordiazePOXIDE HCL 10 MG CAPSULE PO SCH (05:26)
[2017-06-11 09:20] VITALS: BP 121/74; PULSE 101; TEMP 97
== END 2017-06-11 09:15 | disposition home or self-care (01) | DRG 775 ==
LOC: YASAS 11:38 → Y3N 17:25
PROVIDERS: ADMIT Internal Medicine; ATTEND Internal Medicine
PROC: HZ2ZZZZ Detoxification Services for Substance Abuse Treatment (ICD-10-PCS; principal; 2017-06-07)
DX: F10.230 Alcohol dependence with withdrawal, uncomplicated (principal); F15.20 Other stimulant dependence, uncomplicated; F17.213 Nicotine dependence, cigarettes, with withdrawal; F19.24 Other psychoactive substance dependence with psychoactive substance-induced mood disorder; Z21 Asymptomatic human immunodeficiency virus [HIV] infection status; J45.909 Unspecified asthma, uncomplicated; R63.4 Abnormal weight loss; Z68.22 Body mass index [BMI] 22.0-22.9, adult; Z59.0 Homelessness; F34.1 Dysthymic disorder; Z91.5 Personal history of self-harm
CPT/HCPCS: 36415; 80053; 81003; 81015; 85027; 86593; 93005; 93010